=== PATIENT | male | born 1955 | race American Indian/Alaskan Native ===

== ENCOUNTER 2016-09-08 11:18 | Emergency (ER) | payer SELFPAY ==
--- NOTE | 2016-09-08 11:50 | Emergency Department Report ---
Chief Complaint: Psych Stated Complaint: HEARING VOICES Time Seen by Provider: 09/08/16 11:40 - HPI History of Present Illness: hx schizo off meds for months ah to get gone and kill self and others seeing people hi si htn off meds rn aware - ROS Review of Systems: as notedas noted - Exam Vital Signs: Vital Signs 09/08/16 11:38 Temperature 98.4 F Pulse Rate 84 Respiratory 18 Rate Blood Pressure 147/98 O2 Sat by Pulse 100 Oximetry MSE screening note: Focused history and physical exam performed. Due to findings the following was ordered: ED Disposition for MSE Condition: Stable
--- NOTE | 2016-09-08 12:07 | Emergency Department Report ---
HPI - General Chief Complaint: Psych Time Seen by Provider: 09/08/16 11:52 - HPI HPI: This is a 61-year-old Afro-[place] male presents the emergency department with a complaint of auditory hallucinations and suicidal ideations. The patient says he is hearing voices that tell him to kill himself although he does not have a plan. He has a history of schizophrenia and used to be on medications but has not been on for many months. The only medication he can remember his Haldol. He does not have a primary care doctor or psychiatrist. He has a past medical history of hypertension for which she supposedly takes lisinopril. He is a tobacco smoker and uses marijuana but denies any other illicit drugs. He does admit to recent alcohol use. ED Past Medical Hx - Past Medical History Previous Medical History?: Yes Hx Hypertension: Yes Hx Psychiatric Treatment: Yes (schizophrenia) - Surgical History Past Surgical History?: No - Social History Smoking Status: Current Every Day Smoker Substance Use Type: Alcohol, Marijuana, Prescribed - Medications Home Medications: Home Medications Medication Instructions Recorded Confirmed Last Taken Type Lisinopril [Zestril] 5 mg PO QDAY 09/08/16 09/08/16 Unknown History ED Review of Systems ROS: Stated complaint: HEARING VOICES Other details as noted in HPI Comment: All other systems reviewed and negative Constitutional: denies: chills, fever Eyes: denies: eye pain, eye discharge, vision change ENT: denies: ear pain, throat pain Respiratory: denies: cough, shortness of breath, wheezing Cardiovascular: denies: chest pain, palpitations Gastrointestinal: denies: abdominal pain, nausea, diarrhea Genitourinary: denies: urgency, dysuria Musculoskeletal: denies: back pain, joint swelling, arthralgia Skin: denies: rash, lesions Neurological: denies: headache, weakness, paresthesias Psychiatric: auditory hallucinations, suicidal thoughts. denies: visual hallucinations, homicidal thoughts Physical Exam - Physical Exam Vital Signs: Vital Signs 09/08/16 11:38 Temperature 98.4 F Pulse Rate 84 Respiratory 18 Rate Blood Pressure 147/98 O2 Sat by Pulse 100 Oximetry Physical Exam: GENERAL: The patient is well-developed well-nourished. HEENT: Normocephalic. Atraumatic. Extraocular motions are intact. Patient has moist mucous membranes. Pupils equal reactive to light bilaterally. NECK: Supple. Trachea is midline. CHEST/LUNGS: Clear to auscultation. There is no respiratory distress noted. HEART/CARDIOVASCULAR: Regular. There is no tachycardia. There is no gallop rub or murmur. ABDOMEN: Abdomen is soft, nontender. Patient has normal bowel sounds. There is no abdominal distention. SKIN: There is no rash. There is no edema. There is no diaphoresis. NEURO: The patient is awake, alert, and oriented. The patient is cooperative. The patient has no focal neurologic deficits. The patient has normal speech. MUSCULOSKELETAL: There is no tenderness or deformity. There is no limitation range of motion. There is no evidence of acute injury. ED Course Vital Signs 09/08/16 11:38 Temperature 98.4 F Pulse Rate 84 Respiratory 18 Rate Blood Pressure 147/98 O2 Sat by Pulse 100 Oximetry ED Medical Decision Making - Lab Data Result diagrams: 09/08/16 12:07 09/08/16 12:07 - Medical Decision Making 61-year-old male presents to the emergency department with the complaint of a history of schizophrenia with current auditory hallucinations and suicidal ideations. Patient does not have a plan. Vital signs stable throughout his ED course. Labs did not show any signs of infection, electrolyte abnormalities, renal insufficiency. Negative blood alcohol level and urine drug screen is negative for everything except for cocaine which based on a urine drug screen must have been used within the past 48-72 hours. Patient has been made a 1013 secondary to his suicidal ideations. He is medically cleared for psychiatric placement and the crisis/behavioral counselor has been contacted for assistance. - Differential Diagnosis schizophrenia, bipolar disorder, schizoaffective, depression, substance abu Critical Care Time: No Critical care attestation.: If time is entered above; I have spent that time in minutes in the direct care of this critically ill patient, excluding procedure time. ED Disposition Clinical Impression: Auditory hallucinations, Suicidal ideations, Cocaine abuse Disposition: DC/TX PSY HOSP/PSY UNIT Is pt being admited?: No Condition: Stable
[2016-09-08 12:30] LABS: Basophils % (Auto) 0.6 % (0.0-1.8); Eosinophils % (Auto) 0.9 % (0.0-4.3); Hematocrit 42.7 % (35.5-45.6); Hemoglobin 14.3 gm/dl (11.8-15.2); Mean Corpuscular HGB Conc 33 % (32-34); Mean Corpuscular Hemoglobin 32 pg (28-32); Mean Corpuscular Volume 95 fl (84-94); Platelet Count 146 K/mm3 (140-440); Red Blood Count 4.52 M/mm3 (3.65-5.03); Red Cell Distribution Width 13.5 % (13.2-15.2); White Blood Count 3.3 K/mm3 (4.5-11.0)
[2016-09-08 13:05] LABS: Alanine Aminotransferase 50 units/L (7-56); Albumin 3.8 g/dL (3.9-5); Albumin/Globulin Ratio 1.2 %; Alkaline Phosphatase 87 units/L (35-129); Anion Gap 16 mmol/L; BUN/Creatinine Ratio 13.33; Bilirubin,Total 0.7 mg/dL (0.1-1.2); Blood Urea Nitrogen 12 mg/dL (9-20); Calcium 8.7 mg/dL (8.4-10.2); Carbon Dioxide 24 mmol/L (22-30); Chloride 98.1 mmol/L (98-107); Glucose 236 mg/dL (75-100); Potassium 4.2 mmol/L (3.6-5.0); Sodium 134 mmol/L (137-145)
[2016-09-08 13:08] LABS: Urine Drugs of Abuse Note Disclamer
--- NOTE | 2016-09-09 19:06 | Consultation ---
History of Present Illness - Reason for Consult Consult date: 09/09/16 Reason for consult: psychiatric evaluation - Chief Complaint Chief complaint: "I was drinking and using crack" 61 year old black male seen in the ER for psychiatric evaluation. He presented to the ER with SI. He denies SI/HI/AVHs currently and states he may have said those things while intoxicated and high. He use crack and drinks alcohol on weekends in excess of 1-2 pints of liquor over the course weekend. He states he was on his way to [facility] for unknown reasons. He plans to find housing there. He denies having a drug or alcohol problems but recognizes the consequence as it relates to the current ER visit. Medications and Allergies Allergies Allergy/AdvReac Type Severity Reaction Status Date / Time No Known Allergies Allergy Unverified 09/08/16 11:36 Home Medications Medication Instructions Recorded Confirmed Last Taken Type Lisinopril [Zestril] 5 mg PO QDAY 09/08/16 09/08/16 Unknown History Past psychiatric history - Past Medical History Past Medical History: hypertension - past Psychiatric treatment and history Psych: Schizophrenia psychiatric treatment history: previous substance abuse treatment [address] [facility] [place] [place] [facility] [employer] past medication for schizophrenia diagnosis: haldol - Social History Social history: smoking, alcohol abuse Mental Status Exam - Vital signs Last Vital Signs Temp 97.7 F 09/09/16 09:45 Pulse 73 09/09/16 09:45 Resp 18 09/09/16 09:45 BP 150/75 09/09/16 09:45 Pulse Ox 100 09/09/16 09:45 - Exam Orientation: time, place, person Affect: normal Mood: appropriate Thought content: other (no SI/no HI) Thought Process: Intact Perceptions: none Speech: normal rate and pattern Concentration: focused Motor activity: normal Level of consciousness: alert Memory: Intact Sleep Symptoms: None Interaction: cooperative Results Result Diagrams: 09/08/16 12:07 09/08/16 12:07 All other labs normal. Assessment and Plan Assessment and plan: Impression: Presentation on arrival to ER likely the result of etoh intoxication and crack/ cocaine use. 61 year old black male seen in the ER for psychiatric evaluation. He presented to the ER with SI. He denies SI/HI/AVHs currently and states he may have said those things while intoxicated and high. He use crack and drinks alcohol on weekends in excess of 1-2 pints of liquor over the course weekend. He states he was on his way to [facility] for unknown reasons. He plans to find housing there. He denies having a drug or alcohol problems but recognizes the consequence as it relates to the current ER visit. Recommendation: Reevaluation in 24 hours to determine suicidality If his presentation is unchanged, will consider rescinding 1013.
--- NOTE | 2016-09-10 10:54 | Progress Note ---
Subjective - Reason for Consult Consult date: 09/10/16 Reason for consult: Psychiatry Follow-up - Chief Complaint Chief complaint: "I just used crack" 61 year old black male seen in the ER for psychiatric evaluation. Today patient is calm, cooperative with a circumstantial thought process. He stated that he used crack cocaine at a concert locally and felt "different." He could not elaborate more about this occurrence. Per the patient, he smoke "crack off and on" and consume alcohol (etoh) often for years. He is adamant about going to [place], [place] his home. He stated that he has a room he rent and he receives 700 a month SSI. He denies a psy hx, SI/HIs, AVH's, depression, poor appetite or sleep disturbance. Mental Status Exam - Vital signs Last Vital Signs Temp 98.2 F 09/09/16 20:31 Pulse 72 09/09/16 20:31 Resp 16 09/09/16 20:31 BP 151/85 09/09/16 20:31 Pulse Ox 99 09/09/16 20:31 - Exam Narrative exam: MSE: Appearance: calm, cooperative Behavior: good eye contact Speech: regular rate and tone Mood: "I am better" Affect: euthymic Thought Process: circumstantial Thought Content: denies SI/HI's and AVH's Motor Activity: ambulatory Cognition: A/Ox3 Insight: fair Judgment: fair Assessment and Plan Impression: 61 year old black male seen in the ER for psychiatric evaluation. Today patient is calm, cooperative with a circumstantial thought process. He stated that he used crack cocaine at a concert locally and felt "different." He could not elaborate more about this occurrence. Per the patient, he smoke " crack off and on" and consume alcohol (etoh) often for years. Patient denies SI/ HI's and AVH's. Patient psychosis induced by cocaine usage. His psychosis has resolved. Patient is no threat to self. Recommendation: Rescind 1013. Outpatient rehab services information given to patient.
[2016-09-10 22:15] VITALS: BP 146/78
== END 2016-09-10 22:17 ==
LOC: EEVIPCON 11:18 → ED 11:18
DX: R45.851 Suicidal ideations (principal); R44.0 Auditory hallucinations; F14.10 Cocaine abuse, uncomplicated; I10 Essential (primary) hypertension; F20.9 Schizophrenia, unspecified; F17.200 Nicotine dependence, unspecified, uncomplicated; F12.90 Cannabis use, unspecified, uncomplicated
CPT/HCPCS: 36415; 80053; 80307; 82962; 85025; 99285; G0480; 80320